=== PATIENT | female | born 2000 | race Caucasian/White ===

== ENCOUNTER 2019-11-23 09:01 | Emergency (ER) | payer BC, SELFPAY ==
[2019-11-23 09:06] VITALS: BP 106/65; PULSE 60; RESP 16; TEMP 36.5; O2SAT 100
--- NOTE | 2019-11-23 09:19 | ED.GENADULT ---
HPI - General Adult General Chief complaint: Unspecified Stated complaint: med refill Time Seen by Provider: 11/23/19 09:19 Source: patient and RN notes reviewed Mode of arrival: ambulatory Limitations: no limitations History of Present Illness HPI narrative: 19-year-old jaswant presents with complaints of intermittent persistent coughing spells with workouts for 2-3 days. María D without relief. History of Asthma and Allergies. Albuterol inhaler she has at home has . No rhinorrhea or nasal congestion. Exacerbating factors consist of smoke exposure and workouts. No nausea, vomiting, and abdominal pain. Denies chest pain, dyspnea, coughing up blood, difficulty swallowing, jaw pain, dental pain, facial pain, foreign body sensation, and rash. Remains active. Marli denies being , LMP 1 week ago. Some parts of this dictation were generated by voice recognition software and may contain typographical and/or grammatical inaccuracies. Related Data Home Medications Medication Instructions Recorded Confirmed albuterol sulfate [ProAir HFA] 2 puff INHALATION QID PRN 11/23/19 11/23/19 fexofenadine-pseudoephedrine 1 tablet PO QAM 11/23/19 11/23/19 [María-D 24 Hour] Allergies Allergy/AdvReac Type Severity Reaction Status Date / Time No Known Allergies Allergy Verified 11/23/19 09:13 Review of Systems Review of Systems: Narrative: CONSTITUTIONAL: Denies fever, chills, sweats. EYES: Denies visual changes, redness, discharge. ENT: Denies rhinorrhea, congestion, sore throat, otalgia. CARDIOVASCULAR: Denies chest pain, palpitations, edema. RESPIRATORY: Denies dyspnea, wheezing. Complains of intermittent persistent dry cough. GASTROINTESTINAL: Denies abdominal pain, nausea, vomiting, diarrhea. GENITOURINARY: Denies dysuria, hematuria, abnormal discharge SKIN: Denies rash or itching. MUSCULOSKELETAL: Denies acute back pain, joint pain, or myalgia. NEUROLOGIC: Denies numbness or focal weakness. PSYCHIATRIC: Denies anxiety or depression. [facility] Past Medical History Medical History (Updated 11/24/19 @ 00:00 by Fanny Jackson) Allergies Asthma Eczema Surgical History Surgical History (Updated 11/23/19 @ 09:25 by ELIGIO Maurer) No significant past surgical history Family History Family History (Updated 11/23/19 @ 09:26 by ELIGIO Maurer) Father Asthma Social History Social History (Updated 11/23/19 @ 09:26 by ELIGIO Maurer) Smoking status: Never smoker Second hand tobacco smoke exposure: Yes Alcohol intake: current Alcohol use details: Socially Substance use: never Living arrangements: with family Occupation/Education: student Gender identity (if verbalized by the patient): Female Comments At time of signature, agree with nurse past medical, surgical, social, and family history. There is no relevant family history pertinent to the presenting complaint. Exam Narrative: Exam Narrative: GENERAL: This is a well-nourished, well-developed patient, in no apparent distress. Speaks in full sentences and ambulates with steady gait without dyspnea. HEAD: normocephalic, atraumatic. EYES: PERRL. Sclera clear/white. Vision is grossly intact. EARS: External ears normal, auditory canals clear and without drainage, TMs normal without perforation. Hearing grossly intact. NOSE: External nose normal with no obvious nasal discharge, nares with mild redness and enlarged turbinates, no rhinorrhea. THROAT: Mucous membranes moist, posterior pharynx with PND, mild erythema, no exudate, and normal tonsils. No drainage, no concern for Peritonsillar abscess. No drooling, trismus, or neck swelling. NECK: Neck supple, non-tender without lymphadenopathy, masses or thyromegaly. CARDIOVASCULAR: Regular rate and rhythm without murmurs, gallops, or rubs. RESPIRATORY: Clear to auscultation. Breath sounds equal bilaterally. No wheezes, rales, or rhonchi. GASTROINTESTI
== END 2019-11-23 09:40 | disposition home or self-care (01) ==
PROVIDERS: Emergency Provider Nurse Practitioner Family
DX: R05 Cough (principal); Z76.0 Encounter for issue of repeat prescription; J45.909 Unspecified asthma, uncomplicated
CPT/HCPCS: 99213; G0463

== ENCOUNTER 2020-09-09 13:28 | Emergency (ER) | payer BC, SELFPAY ==
--- NOTE | ~2020-09-09 | XR_ITS ---
XR finger 4th RT min 2V DATE: 09/09/2020 13:47 INDICATION: Injury pulling on dogs collar TECHNIQUE: 4 views COMPARISON: None FINDINGS: There are oblique linear fracture lines through the shaft, neck and medial aspect of the he ad of the middle phalanx, without displacement or angulation. No other fracture or dislocation. IMPRESSION: Nondisplaced fracture of the middle phalanx Reviewed, dictated and finalized at location [facility]
[2020-09-09 13:40] VITALS: BP 119/64; PULSE 74; RESP 20; TEMP 36.6; O2SAT 100
--- NOTE | 2020-09-09 14:01 | ED.UPPEXIN ---
HPI - Extremity Injury (Upper) General Chief Complaint: Extremity Injury, Upper Stated Complaint: right ring finger injury Source: patient Limitations: no limitations History of Present Illness HPI narrative: The patient, is right-handed student, presents with right finger injury. Patient states she has a 2-day history of right ring of pain that is mild to moderate, worse with motion, better at rest or with the splint she is placed, located at the middle phalanges. She was walking her dog yesterday when it pulled her finger; no bleeding, deformity. Related Data Home Medications Medication Instructions Recorded Confirmed fexofenadine-pseudoephedrine 1 tablet PO QAM 11/23/19 09/09/20 [María-D 24 Hour] dextroamphetamine-amphetamine 10 mg PO DAILY 09/09/20 09/09/20 Allergies Allergy/AdvReac Type Severity Reaction Status Date / Time No Known Allergies Allergy Verified 09/09/20 13:43 Review of Systems Review of Systems: Narrative: General/Constitutional: No weight loss,fever Eyes: N0: Redness,discharge Ears/Nose/Throat: No: Epistaxis,ear discharge Respiratory: Denies: Hemoptysis Gastrointestinal: No Vomiting, Bleeding-rectal Skin: No Lumps, eruption Neurologic: No Focal Weakness,Sz Hematologic: Denies: Petechiae/Purpura Psychiatric: No: Suicida ideationl All Other Systems: Reviewed and Negative [facility] Past Medical History Medical History (Updated 11/24/19 @ 00:00 by Fanny Jackson) Allergies Asthma Eczema Surgical History Surgical History (Updated 11/23/19 @ 09:25 by ELIGIO Maurer) No significant past surgical history Family History Family History (Updated 11/23/19 @ 09:26 by ELIGIO Maurer) Father Asthma Social History Social History (Updated 11/23/19 @ 09:26 by ELIGIO Maurer) Smoking status: Never smoker Second hand tobacco smoke exposure: Yes Alcohol intake: current Substance use: never Gender identity (if verbalized by the patient): Female Comments At time of signature, agree with nursing past medical, surgical, social and family history. There is no relevant family history pertinent to the presenting complaint Exam Narrative: Exam Narrative: General Appearance: Well appearing, conjunctiva clear Ears: External ear normal, Auditory canal normal Nose: Normal nose, Nares clear Mouth/Throat: Normal appearing, Normal lips, Supple Respiratory: Airway patent, No respiratory distress MS finger: Nl strength -mostly intact, limited flexion/extension by pain, Tenderness -mid phalanges, with mild decreased ROM, Swelling-mid phalanges, Other (no anterior drawer, no collateral laxity) Skin: Warm, Dry, Normal color Neurological: A&O x3, Speech clear, normal affect Course Course Emergency Course: Films visualized, interpreted by radiologist, agree, ABnormal see report Vital Signs Vital signs: Vital Signs Temperature 97.9 F 09/09/20 13:40 Pulse Rate 74 09/09/20 13:40 Respiratory Rate 20 09/09/20 13:40 Blood Pressure 119/64 09/09/20 13:40 Pulse Oximetry 100 09/09/20 13:40 Temperature 97.9 F 09/09/20 13:40 Pulse Rate 74 09/09/20 13:40 Respiratory Rate 20 09/09/20 13:40 Blood Pressure 119/64 09/09/20 13:40 Pulse Oximetry 100 09/09/20 13:40 Discharge Plan Discharge Patient Disposition: Home, Self-Care Condition: Stable Instructions: Finger Fracture (ED) Additional Instructions: Continue wearing her splint, see hand doctor in follow-up with provided x-rays Prescriptions: New tramadol 50 mg tablet 50 mg PO Q6H PRN (Reason: pain) Qty: 10 RF: 0 No Action dextroamphetamine-amphetamine 10 mg tablet 10 mg PO DAILY RF: 0 María-D 24 Hour 180-240 mg Tablet Extended Release 24 Hr 1 tablet PO QAM RF: 0 Follow-up/Referrals: Richard Londono MD [Emergency Provider] - Joshua Xiong MD [Physician] - Sorin,Karley Arita MD [Primary Care Provider] -
== END 2020-09-09 14:17 | disposition home or self-care (01) ==
PROVIDERS: Emergency Provider Emergency Medicine; PCP Family Medicine
DX: S62.654A Nondisplaced fracture of middle phalanx of right ring finger, initial encounter for closed fracture (principal); X50.9XXA Other and unspecified overexertion or strenuous movements or postures, initial encounter; Y93.K1 Activity, walking an animal; J45.909 Unspecified asthma, uncomplicated
CPT/HCPCS: 73140; 99213; 99214; G0463